=== PATIENT | male | born 1995 | race Caucasian/White ===

== ENCOUNTER 2017-10-19 11:12 | Emergency (ER) | payer OTHER ==
[2017-10-19 11:23] VITALS: BP 151/89; RESP 18
[2017-10-19] MEDS ORDERED: TDAP ADULT 0.5 ML INJ (BOOSTRIX) IM ONE (11:23)
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
[2017-10-19 12:24] VITALS: PULSE 94; TEMP 97.9; O2SAT 98
== END 2017-10-19 12:25 | disposition home or self-care (01) ==
PROC: 0HQ1XZZ Repair Face Skin, External Approach (ICD-10-PCS; principal; 2017-10-19)
DX: S01.112A Laceration without foreign body of left eyelid and periocular area, initial encounter (principal); J45.909 Unspecified asthma, uncomplicated; Z23 Encounter for immunization; W22.8XXA Striking against or struck by other objects, initial encounter; Y99.8 Other external cause status; Y93.89 Activity, other specified

== ENCOUNTER 2019-02-25 12:18 | Emergency (ER) | payer MEDICAID, OTHER ==
[2019-02-25 12:27] VITALS: BP 137/87
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
--- NOTE | 2019-02-27 17:32 | CPEKG ---
Test Reason : OPEN Blood Pressure : / mmHG Vent. Rate : 056 BPM Atrial Rate : 000 BPM P-R Int : 149 ms QRS Dur : 109 ms QT Int : 436 ms P-R-T Axes : 053 084 064 degrees QTc Int : [address] elev, probable normal early repol pattern Confirmed by Nikkie Canas ([id number]) on 02/27/2019 5:31:47 PM Referred By: Nikkie Canas Confirmed By:Nikkie Canas
== END 2019-02-25 13:03 | disposition home or self-care (01) ==
DX: R07.9 Chest pain, unspecified (principal); F17.200 Nicotine dependence, unspecified, uncomplicated; Z59.0 Homelessness